=== PATIENT | male | born 1955 | race Caucasian/White ===

== ENCOUNTER → 2025-03-02 | Outpatient (CLI) | payer MEDICARE ==
[~2025-03-02] VITALS: Ht 172.7 cm; Wt 126.6 kg
[~2025-03-02] MED LIST: APIX5TAB PO; ATEN25TA PO; CHOL500045 PO; DOXA4TAB3 PO; FOLI1 PO; LACTATED RINGERS 1000ML 0 ML IV ONE; MAGN100T PO; METH2.5T6 PO; OLME40TA18 PO; OMEP20TA20 PO; PRAV40TA3 PO; UBID200C18 PO; ceFAZolin SODIUM 1 GM VIAL ONE; ceFAZolin SODIUM 2 GM VIAL ONE
[2025-03-02 12:09] LABS: BASOPHILS # (AUTO) 0.03 K/uL (0.00-0.20); BASOPHILS % (AUTO) 0.3 % (0.0-5.0); EOSINOPHILS # (AUTO) 0.11 K/uL (0.00-0.70); EOSINOPHILS % (AUTO) 1.2 % (0.0-8.0); HEMATOCRIT 42.7 % (42-54); IMMATURE GRANULOCYTE ABSOLUTE 0.04 K/uL (0-1); LYMPHOCYTES # (AUTO) 2.3 K/uL (1.0-4.8); LYMPHOCYTES % (AUTO) 25.4 % (21.0-51.0); MEAN CORPUSCULAR HEMOGLOBIN 31.9 pg (27.0-33.0); MEAN CORPUSCULAR HGB CONC 34.4 g/dL (32.0-36.0); MEAN CORPUSCULAR VOLUME 92.6 fL (79-99); MONOCYTES # (AUTO) 0.8 K/uL (0.1-1.0); MONOCYTES % (AUTO) 8.4 % (3.0-13.0); NEUTROPHILS # (AUTO) 5.7 K/uL (1.8-7.7); NEUTROPHILS % (AUTO) 64.3 % (40.0-77.0); PLATELET COUNT (AUTO) 257 K/uL (130-400); RED BLOOD CELL COUNT(AUTO) 4.61 MIL/uL (4.50-6.20); RED CELL DISTRIBUTION WIDTH 13.9 % (11.0-15.5); WHITE BLOOD COUNT (AUTO) 8.9 K/uL (4.8-10.8)
[2025-03-02 12:10] VITALS: BP 179/85; PULSE 64; RESP 18; TEMP 97.5
[2025-03-02 12:23] LABS: INR 1.14 (0.85-1.15); PROTHROMBIN TIME 11.9 SEC (9.6-11.6)
[2025-03-02 12:24] LABS: PARTIAL THROMBOPLASTIN TIME 29.5 SEC (26.3-35.5)
[2025-03-02 12:28] LABS: ALBUMIN 3.6 g/dL (3.5-5.0); CREATININE 0.7 mg/dL (0.5-1.3); POTASSIUM 3.9 mmol/L (3.5-5.1)
--- NOTE | 2025-03-02 12:30 | NUR ---
RE: IS INITIAL IS INITIAL TEACHING COMPLETED BY HAM CUBA DURING PREOP
--- NOTE | 2025-03-08 16:00 | NUR ---
Information received 09- Patient called Ortho office to report a rash, instructed to follow up with PCP. Patient states will not be presenting for elective hip Sx today. ( Melody Mcdonald,HAM)
== END | disposition home or self-care (01) ==
LOC: EDSTATUS 09:00 → DAH 10:55
PROVIDERS: ATTEND Student in an Organized Health Care Education/Training Program
DX: M16.11 Unilateral primary osteoarthritis, right hip (principal); M25.551 Pain in right hip; Z98.890 Other specified postprocedural states; Z79.899 Other long term (current) drug therapy; Z53.9 Procedure and treatment not carried out, unspecified reason; Z79.01 Long term (current) use of anticoagulants
CPT/HCPCS: 36415; 80048; 82040; 84134; 85025; 85610; 85730; 86140; 87641; J0690; J7120

== ENCOUNTER 2025-03-16 10:00 | Inpatient (IN) | payer MEDICARE ==
--- NOTE | 2025-03-15 11:20 | NUR ---
PREOP RITU RT INSTRUCTED ON INCENTIVE SPIROMETRY Addendum: 03/16/25 at 1030 by GEMINI MAY RN RN ORDER WAS NOT PLACED ON PREOP DATE SO ENTERED TODAY
[2025-03-15 11:34] VITALS: BP 189/96; PULSE 58; RESP 18; TEMP 98.3
[2025-03-15 11:37] LABS: ALBUMIN 3.6 g/dL (3.5-5.0); BILIRUBIN,TOTAL 0.8 mg/dL (0.2-1.0); CREATININE 0.8 mg/dL (0.5-1.3); POTASSIUM 3.4 mmol/L (3.5-5.1); TOTAL PROTEIN, SERUM 7.1 g/dL (6.0-8.3)
--- NOTE | 2025-03-15 12:47 | NUR ---
REPORT DR BOYLE INFORMED PT LAST TOOK ELIQUIS ON 03/11/25 0700. OK TO PROCEED
[~2025-03-16] VITALS: Ht 172.7 cm; Wt 126.1 kg
[~2025-03-16 10:00] MED LIST changes: -LACTATED RINGERS 1000ML 0 ML IV ONE; -ceFAZolin SODIUM 1 GM VIAL ONE; -ceFAZolin SODIUM 2 GM VIAL ONE
[2025-03-20] VITALS (22 sets, daily range): BP systolic 127–165; BP diastolic 61–97; PULSE 57–94; RESP 13–20; TEMP 97–98.2; O2SAT 96
[2025-03-20] MEDS: TRANEXAMIC ACID 1000MG/10ML IV ONE
[2025-03-20] MEDS: LACTATED RINGERS 1000ML 1,000 ML IV ONE (10:37)
[2025-03-20] MEDS: ceFAZolin SODIUM 1 GM VIAL ONE (10:37)
[2025-03-20] MEDS: ceFAZolin SODIUM 2 GM VIAL ONE (10:37)
[2025-03-20] MEDS ORDERED: LIDOCAINE PF 100MG/5ML (2%) SYRINGE 5ML ONE (10:57)
[2025-03-20] MEDS ORDERED: proPOFol 10 MG/ML 20ML VIAL IV ONE (10:58)
[2025-03-20] MEDS ORDERED: ondanSETRON 4MG INJ ONE (10:58)
[2025-03-20] MEDS ORDERED: NEOSTIGMINE METHYLSULFATE 1MG/ML IV ONE (10:58)
[2025-03-20] MEDS ORDERED: rocuRONium bROMide 10MG/1ML 5ML VL ONE ×2 (10:58→13:58)
[2025-03-20] MEDS ORDERED: SUCCINYLCHOLINE CHLORIDE 20 MG/ML 10 ML VIAL ONE (10:58)
[2025-03-20] MEDS ORDERED: FENTanyl CITRate PF 50 MCG/1 ML 2ML VIAL ONE ×3 (10:58→16:43)
[2025-03-20] MEDS ORDERED: GLYCOPYRROLATE 0.2 MG/ML 5 ML VIAL ONE (10:58)
[2025-03-20] MEDS ORDERED: dexaMETHasone SOD PHOSPHATE 10MG/ML 1ML VIAL ONE (10:58)
[2025-03-20] MEDS ORDERED: MIDAZOLAM HCL 1 MG/ML 2ML VIAL ONE (11:03)
[2025-03-20] MEDS ORDERED: ketaMINE 50MG/ML SYRINGE 50 MG/ML DISP.SYRIN ONE (11:36)
[2025-03-20] MEDS ORDERED: ALBUMIN (HUMAN) 5% 500 ML IV ONE (11:36)
[2025-03-20] MEDS ORDERED: ROPivacaine 0.5% 5MG/ML 30ML ONE (11:53)
[2025-03-20] MEDS ORDERED: SUGAMMADEX SODIUM 200 MG/2 ML VIAL IV ONE (13:14)
[2025-03-20] MEDS ORDERED: acetaMINOPHEN 100 ML ONE (13:14)
[2025-03-20] MEDS ORDERED: FAMOTIDINE 20MG VIAL IV ONE (13:14)
[2025-03-20] MEDS ORDERED: PoTASSium chl 10% ELIXIR 20MEQ 20 MEQ/15 ML UDCUP PO PRN (13:30)
[2025-03-20] MEDS ORDERED: FERROUS FUMARATE 324 MG TABLET PO PRN (13:30)
[2025-03-20] MEDS ORDERED: traMADol HCL 50 MG TABLET PO PRN (13:30)
[2025-03-20] MEDS ORDERED: HYDROcodone/APAP 5/325 1 TAB TABLET PO PRN ×2 (13:30→14:00)
[2025-03-20] MEDS ORDERED: ondanSETRON 4MG INJ IVP PRN (13:30)
[2025-03-20] MEDS: ceFAZolin SODIUM 3 GM VIAL IVPB ONE (13:38)
[2025-03-20] MEDS: TRANEXAMIC ACID 1000MG/10ML ONE (13:42)
[2025-03-20] MEDS ORDERED: VANCOMYCIN 1G/250ML KIT 250 ML IV ONE (15:57)
[2025-03-20] MEDS: VANCOMYCIN 1G VIAL TP ONE ×2 (15:59→17:00)
--- NOTE | 2025-03-20 18:04 | HMCIMG ---
INTRAOPERATIVE FLUOROSCOPIC GUIDANCE UP TO 1 HOUR. IMPRESSION: Intraoperative fluoroscopic guidance was provided for removal of existing hardware in conversion to right total hip arthroplasty, which was performed by Dr. Wilcox. Total fluoroscopy time was 10.7 seconds, and administered dose, 4.38 mGy. A total of 6 spot images obtained. Please refer to the orthopedic procedure note for further details.
--- NOTE | 2025-03-20 18:34 | DS ---
Discharge Summary Hospital Course Summary: The patient was admitted to the hospital postoperatively on 03/20/2025 after undergoing right conversion hip arthroplasty. They did well with routine postoperative pain control. They worked well with physical therapy. They developed some acute blood loss anemia but remained asymptomatic. The hospital course was otherwise uncomplicated. They were subsequently able to be discharged on postoperative day 2 once discharge arrangements were made with [facility] rehab. A P Supervisor(s): none Procedure(s): Conversion right total hip arthroplasty, 03/20/2025 Assessment/Plan: ASSESSMENT: Status post conversion right total hip arthroplasty Asymptomatic acute blood loss anemia PLAN: See discharge instructions Discharge Instructions: Begin working with therapy at the facility. Remembered do not flex the hip more than 90� and do not cross midline at the knees or ankles for the 1st six weeks. If you are side sleeper place a pillow between the knees and ankles to prevent the legs from crossing. Dressing may be removed 03/22/2025 and left open to air. Showers ok allowing soap and water to run over the wound. Pat dry. Do not submerge wound in tub/pool. Do not apply ointments. Do not apply Betadine. Do not apply peroxide. Ice packs to decrease pain/swelling. Prescriptions have been sent to the pharmacy: *Mt Baldy 5/325mg 1-2 tab every 6 hours as needed for severe pain. (please call for refills) Cyclobenzaprine 5mg 1 tab every 8 hours as needed for muscle spasm pain. Gabapentin 100mg 1 tab every 8 hours (may discontinue if drowsy). Colace 100mg 1 tab orally twice a day as needed for constipation. Aspirin 325mg for 30 days to prevent blood clots. Call for a follow-up appointment in 2-3 weeks at [facility]. Home Medications: Reported Medications Cholecalciferol (Vitamin D3) (Vitamin D3) 125 Mcg (5000 Unit) Tablet, 125 MCG PO DAILY, TAB 03/02/25 Ubidecarenone (Co Q-10) 200 Mg Capsule, 200 MG PO DAILY, CAP 03/02/25 Methotrexate Sodium (Methotrexate) 2.5 Mg Tablet, 10 MG PO QWEEK, TAB Sundays03/02/25 Omeprazole (Omeprazole) 20 Mg Tablet.dr, 20 MG PO DAILY, TAB 03/02/25 Folic Acid (Folvite) 1 Mg Tab, 1 MG PO DAILY, TAB 03/02/25 Olmesartan Medoxomil (Olmesartan Medoxomil) 40 Mg Tablet, 40 MG PO DAILY, TAB 03/02/25 Atenolol (Atenolol) 25 Mg Tablet, 25 MG PO HS, TAB 03/02/25 Pravastatin Sodium (Pravastatin Sodium) 40 Mg Tablet, 40 MG PO HS, TAB 03/02/25 Apixaban (Eliquis) 5 Mg Tablet, 5 MG PO BID, TAB 03/02/25 Doxazosin Mesylate (Doxazosin Mesylate) 4 Mg Tablet, 4 MG PO HS, TAB 03/02/25 Magnesium Glycinate (Mag Glycinate) 100 Mg Tablet, 400 MG PO DAILY, TAB 03/02/25 RUTHIE BOYLE MD March 20, 2025 18:34
[2025-03-20] MEDS: morPHINE 2 MG SYG ONE (18:49)
--- NOTE | 2025-03-20 19:06 | OP ---
Operative Note: DATE OF PROCEDURE: 03/20/25 SURGEON: RUTHIE BOYLE MD SALES REPRESENTATIVE ADDING MACHINES: Stacie Wilson ANESTHESIA: General and fascia iliaca block ANESTHESIOLOGIST/INFECTION CONTROL COORDINATOR: Jacob Segal PREOPERATIVE DIAGNOSIS: Right hip osteoarthritis POSTOPERATIVE DIAGNOSIS: Right hip osteoarthritis PROCEDURE: Complex conversion right total hip arthroplasty ESTIMATED BLOOD LOSS: 200 cc INDICATIONS: 69-year-old male with a history of bilateral hips SCFE with surgical treatment when he was 16. He went onto develop bilateral hip osteoarthritis. He had left total hip arthroplasty performed elsewhere that required a few revisions. He continued on with right hip osteoarthritis and was failing conservative management. This was complicated by the fact he had a retained DHS lateral plate in addition to some proximal femoral deformity. After discussion of the risks, benefits, and alternatives, the patient voluntarily agreed to undergo the aforementioned procedure. IMPLANTS: Riley [employer] Nephew 54 mm R3 acetabular component with 6.5 mm screws x2 and central hole cover, 0 degree XLPE polyethylene liner, size 6 standard offset anthology stem with a 36 mm Oxinium +0 head DESCRIPTION OF PROCEDURE: Patient was properly identified in the preoperative holding area. Surgical site marking was verified and surgery consent reviewed. The patient was then taken to the operating room and placed in supine position on the OR table. After induction of general anesthesia, preoperative antibiotics were given. The patient was then transitioned in the lateral decubitus position with the right side up. All bony prominences were well-padded. Right lower extremity was then prepped and draped in the usual sterile fashion. Surgical time out was done verifying correct surgery, side, site, and location to be performed. We began the procedure by opening the previous lateral scar along proximal thigh excising the widened scar tissue. We did not follow the anterior limb of the scar. Here we came down sharply through the subcutaneous scar tissue to identify the IT band. Hemostasis was performed using Bovie electrocautery. IT band was incised in line with our skin incision. This was elevated anteriorly and posteriorly with a Charnley retractor in place. We then identified the vastus lateralis and swept this anteriorly as we work to identify the plate along the bone. We then used osteotomes to remove the bony overgrowth over the top of the plate and resected some of this material using a rongeur. We then began to address the screws from the shaft of the plate and were able to get the proximal three of the screws to, without significant difficulty. The most distal screw we attempted to remove with the screwdrivers both Oliveira and flat head and were unable to get this to move. The screw head stripped in this process and we attempted to remove it with the easy-outs that were in the [facility] set without success. We then elected to cut off the head of the screw using the metal cutting kaley wheel. Once we had removed the head of the screw, we then elected to elevate the plate off of the bone. We did this sequentially placing osteotomes under the shaft of the plate progressing further away from the fixed angle portion. We are then able to remove the plate from the bone without further difficulty. We attempted to grasp of the remaining portion of the screw shaft that was visible after removing the plate using vice rating clerk. We were unable to rotate this remaining portion of the screw. We then had to use a trephined over the remaining screw shaft buried in the bone. When the trephined did not completely remove the screw it was removed from the bone in the screw was noted to have fractured further in the shaft. We used a 2nd trephined to remove the remainder of the screw. We then thoroughly irrigated out this portion of the wound to remove metal shavings prior to proceeding with the total hip portion of the procedure. We then extended the incision proximally over the greater trochanter approximately 10 cm using a 10 blade. Here we came sharply through skin down to the fascia. Hemostasis was then achieved using Bovie electrocautery. We then incised fascia in line with the skin incision and finger split the tensor muscle proximally. We then placed our Charnley retractor. At this point we identified the vastus ridge and began elevating the full-thickness soft tissue flap off of the vastus ridge, splitting the vastus lateralis and gluteus muscles as necessary. We then proceeded to externally rotate the femur while making this flap. We noted abnormal anatomy of the proximal femur secondary to prior surgical intervention at this time. We took care with performing this part of the dissection due to the altered anatomy. We resected part of the anterior capsule. The femoral head and neck was then delivered into view. We then dislocated the hip and performed our femoral neck osteotomy approximately half a fingerbreadth proximal to the lesser trochanter. We then placed our retractors around the superior and anterior portion of the acetabulum and began to remove the labrum circumferentially. We then began reaming the acetabulum where we reamed up to a size 53 ensuring appropriate anteversion and abduction. We then proceeded to trial with the size 54 acetabular component and this appeared to sit well. We opened our size 54 acetabular component and after irrigating out the wound malleted this into place. It appeared to have good press-fit however we elected to place two of the 6.5 mm screws as well. We drilled and filled the screws in standard fashion in the posterior superior portion of the cup. We then placed the manhole cover on the center of the cup. The wound was thoroughly irrigated out further and we placed the acetabular liner and impacted this in place in standard fashion. We then proceeded to reposition our retractors to elevate the proximal femur out of the wound. We then used the box chisel and canal finder to began preparing the femoral side and sequentially broached up to the aforementioned size stem. Once we felt we had good fit, fill, and control of the femur with the stem in place we then used our trial head component and reduce the hip. Upon reduction, we had appropriate soft tissue tensioning, limb length and stable range of motion. We therefore dislocated the hip once more removed our trial components thoroughly irrigated the out the wound and placed our final components in st andard fashion. The hip was then reduced with the final components in place. It was found to be stable through range of motion with appropriate soft tissue tensioning and appropriate limb length. We then dumped 1 g of vancomycin powder throughout the wound from the hip extended into the proximal thigh. At this point we placed a bump under the knee and the foot on the Macias stand with a stack of towels to allow for internal rotation. We repaired the abductors back to the greater trochanter using #5 Ethibond. We repaired the split in the gluteus medius and minimus muscles using the 5. Ethibond in a running fashion. We then repaired the fascia of the vastus lateralis using #1 Vicryl in a interrupted [id number]. We removed our Charnley retractor and began to repair the IT band using #1 Vicryl in interrupted [id number] fashion. At this point we began to close her subcutaneous tissue using 2-0 Vicryl. Running 3-0 Monocryl in subcuticular fashion with Dermabond placed over this for the skin. Island barrier dressing was then applied. Patient was returned to supine position with abduction pillow placed, awakened from anest hesia, and taken to the recovery room in stable condition. Due to the increased complexity from the hardware in place and abnormal anatomy from prior surgical intervention this procedure took over twice as long as it normally does. RUTHIE BOYLE MD March 20, 2025 19:06
--- NOTE | 2025-03-20 19:38 | HMCIMG ---
Exam Type: HIP BILAT 2VW History: S/P HIP SURGERY; COMPARING RT vs LT Comparison: none Findings: There is status post right hip replacement with adequate visualization and alignment of bony and hardware elements. No complications are seen. Single view AP of the left hip demonstrate status post hip replacement as well, but with a focus of cystic degeneration involving the greater trochanter which may represent implant related bone lysis. Bone density is preserved. No acute fractures or dislocations are seen. No blastic or lytic lesions or bones are identified. The soft tissues are unremarkable. 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 No acute fractures or other abnormalities otherwise.
[2025-03-20] MEDS: ketOROlac 15MG/ML VIAL (15MG/ML) IV SCH (20:16)
[2025-03-20] MEDS: atorVAStatin 10 MG TABLET PO SCH (20:16)
[2025-03-20] MEDS: doCUSate SODIUM 100 MG CAP PO SCH (20:16)
[2025-03-20] MEDS: ATENOLOL 25 MG TABLET PO SCH (20:16)
[2025-03-20] MEDS: DOXAZOSIN MESYLATE 2 MG TABLET PO SCH (20:16)
[2025-03-20] MEDS: ceFAZolin SODIUM 2 GM VIAL IVP SCH (20:17)
[2025-03-20] MEDS: GABApentin 100 MG CAPSULE PO SCH (20:17)
[2025-03-20] MEDS: CYCLOBENZAPRINE HCL 10 MG TABLET PO PRN (23:09)
[2025-03-20] MEDS: HYDROcodone/APAP 5/325 1 TAB TABLET PO PRN (23:09)
[2025-03-21] VITALS (9 sets, daily range): BP systolic 101–154; BP diastolic 47–79; PULSE 70–79; RESP 18–20; TEMP 97.7–98.7; O2SAT 96
[2025-03-21] MEDS: 0.9%NACL 1000ML 1,000 ML IV SCH (00:22)
[2025-03-21 05:18] LABS: HEMATOCRIT 35.1 % (42-54); MEAN CORPUSCULAR HEMOGLOBIN 32.1 pg (27.0-33.0); MEAN CORPUSCULAR VOLUME 91.6 fL (79-99); RED BLOOD CELL COUNT(AUTO) 3.83 MIL/uL (4.50-6.20); RED CELL DISTRIBUTION WIDTH 13.8 % (11.0-15.5); WHITE BLOOD COUNT (AUTO) 13.2 K/uL (4.8-10.8)
[2025-03-21 05:29] LABS: CREATININE 0.8 mg/dL (0.5-1.3)
[2025-03-21 05:43] LABS: POTASSIUM 2.9 mmol/L (3.5-5.1)
[2025-03-21] MEDS: PoTASSium chloRIDE 20MEQ/100ML 100 ML IV PRN (05:49)
[2025-03-21] MEDS: PoTASSium chloRIDE 20MEQ ER 20 MEQ ERTAB PO PRN (05:49)
[2025-03-21] MEDS: CALCIUM CARB 500MG PO PRN (05:49)
--- NOTE | 2025-03-21 08:07 | PN ---
Ortho postop day one. This morning patient is awake alert and oriented. He is out of bed seated in a chair resting comfortably reporting mild to moderate pain. Vital signs have remained stable. Afebrile. Voiding on his own without difficulty. Laboratory results reviewed. Noted to have a drop in hemoglobin and hematocrit as expected after total hip arthroplasty. Currently is asymptomatic. The patient also has drop in potassium as well as calcium and is currently being covered with protocol. Operative findings discussed with the patient. He is yet to pass gas. Dressing is intact. Distal neurovascular exam intact. He currently has SCD sleeves on but not connected. Reinforced and incentive spirometry and returned demonstration adequate. Did not have the opportunity to ambulate yesterday with physical therapy and is pending therapy this morning. Anticipated discharge goal is [facility] rehab. Assessment: Status post complex right total hip arthroplasty conversion. Hypokalemia Hypocalcemia Asymptomatic Acute postoperative blood loss anemia. Plan: Continue with Dr. Wilcox's total hip arthroplasty protocol and discharge planning. Hypokalemia currently addressed and on treatment by protocol Hypocalcemia currently addressed and on treatment by protocol Asymptomatic acute postoperative blood loss anemia addressed with the protocol as necessary Vitals/Labs Vital Signs Date Time Temp Pulse Resp B/P (MAP) Pulse Ox O2 Delivery O2 Flow Rate FiO2 03/21/25 03:15 98.1 78 20 148/69 99 Nasal Cannula 3.0 03/20/25 19:30 32 Laboratory Tests 03/21/25 04:38 Medications Current Medications Cefazolin Sodium 1 gm STK-MED ONCE .ROUTE; Start 03/20/25 at 09:11; Stop 03/20/25 at 09:11; Status DC Cefazolin Sodium 2 gm STK-MED ONCE .ROUTE; Start 03/20/25 at 09:11; Stop 03/20/25 at 09:11; Status DC Lactated Ringer's 1,000 ml @ As Directed STK-MED ONCE IV Last administered on 03/20/25at 10:37; Start 03/20/25 at 09:11; Stop 03/20/25 at 09:11; Status DC Lidocaine HCl 100 mg STK-MED ONCE .ROUTE; Start 03/20/25 at 10:57; Stop 03/20/25 at 10:58; Status DC Succinylcholine Chloride 200 mg STK-MED ONCE .ROUTE; Start 03/20/25 at 10:58; Stop 03/20/25 at 10:58; Status DC Dexamethasone Sodium Phosphate 10 mg STK-MED ONCE .ROUTE; Start 03/20/25 at 10:58; Stop 03/20/25 at 10:58; Status DC Glycopyrrolate 1 mg STK-MED ONCE .ROUTE; Start 03/20/25 at 10:58; Stop 03/20/25 at 10:58; Status DC Propofol 200 mg STK-MED ONCE IV; Start 03/20/25 at 10:58; Stop 03/20/25 at 10:58; Status DC Neostigmine Methylsulfate 10 mg STK-MED ONCE IV; Start 03/20/25 at 10:58; Stop 03/20/25 at 10:58; Status DC Ondansetron HCl 4 mg STK-MED ONCE .ROUTE; Start 03/20/25 at 10:58; Stop 03/20/25 at 10:58; Status DC Rocuronium Chase 50 mg STK-MED ONCE .ROUTE; Start 03/20/25 at 10:58; Stop 03/20/25 at 10:59; Status DC Fentanyl Citrate 100 mcg STK-MED ONCE .ROUTE; Start 03/20/25 at 10:58; Stop 03/20/25 at 10:59; Status DC Midazolam HCl 2 mg STK-MED ONCE .ROUTE; Start 03/20/25 at 11:03; Stop 03/20/25 at 11:03; Status DC Ketamine HCl 50 mg STK-MED ONCE .ROUTE; Start 03/20/25 at 11:36; Stop 03/20/25 at 11:36; Status DC Albumin Human 500 ml @ As Directed STK-MED ONCE IV; Start 03/20/25 at 11:36; Stop 03/20/25 at 11:37; Status DC Ropivacaine 150 mg STK-MED ONCE .ROUTE; Start 03/20/25 at 11:53; Stop 03/20/25 at 11:53; Status DC Acetaminophen 100 ml @ As Directed STK-MED ONCE .ROUTE; Start 03/20/25 at 13:14; Stop 03/20/25 at 13:14; Status DC Famotidine 20 mg STK-MED ONCE IV; Start 03/20/25 at 13:14; Stop 03/20/25 at 13:15; Status DC Sodium Chloride 1,000 ml @ 100 mls/hr Q10H IV Last administered on 03/21/25at 00:22; Start 03/20/25 at 13:30; Stop 03/21/25 at 13:29 Polyethylene Glycol 17 gm DAILY PO; Start 03/21/25 at 09:00; Stop 04/20/25 at 08:59 Bisacodyl 10 mg DAILY PRN RC; Start 03/23/25 at 13:30; Stop 04/22/25 at 13:29 Ketorolac Tromethamine 15 mg Q6H PRN IV; Start 03/21/25 at 13:30; Stop 03/26/25 at 13:29 Ferrous Fumarate 324 mg DAILY PRN PO; Start 03/20/25 at 13:30; Stop 04/19/25 at 13:29 Calcium Carbonate 500 mg Q12H PRN PO Last administered on 03/21/25at 05:49; Start 03/20/25 at 13:30; Stop 04/19/25 at 13:29 Ondansetron HCl 4 mg Q6H PRN IVP; Start 03/20/25 at 13:30; Stop 04/19/25 at 13:29 Cefazolin Sodium 2 gm Q8H IVP Last administered on 03/21/25at 02:24; Start 03/20/25 at 18:30; Stop 03/21/25 at 02:31; Status DC Gabapentin 100 mg TID PO Last administered on 03/20/25at 20:17; Start 03/20/25 at 14:00; Stop 04/19/25 at 13:59 Cyclobenzaprine HCl 5 mg Q8H PRN PO Last administered on 03/20/25at 23:09; Start 03/20/25 at 13:30; Stop 04/19/25 at 13:29 Docusate Sodium 100 mg BID PO Last administered on 03/20/25at 20:16; Start 03/20/25 at 21:00; Stop 04/19/25 at 20:59 Ketorolac Tromethamine 15 mg Q8H IV Last administered on 03/21/25at 05:14; Start 03/20/25 at 13:30; Stop 03/21/25 at 05:32; Status DC Aspirin 325 mg DAILY PO; Start 03/21/25 at 09:00; Stop 04/20/25 at 08:59 Potassium Chloride 100 ml @ 100 mls/hr AD PRN IV Last administered on 03/21/25at 05:49; Start 03/20/25 at 13:30; Stop 04/19/25 at 13:29 Potassium Chloride 20 meq AD PRN PO; Start 03/20/25 at 13:30; Stop 04/19/25 at 13:29 Potassium Chloride 20 meq AD PRN PO Last administered on 03/21/25at 05:49; Start 03/20/25 at 13:30; Stop 04/19/25 at 13:29 Tramadol HCl 50 mg Q6H PRN PO; Start 03/20/25 at 13:30; Stop 03/25/25 at 13:29 Acetaminophen/ Hydrocodone Bitart Q4H PRN PO; Start 03/20/25 at 13:30; Stop 03/20/25 at 13:54; Status DC Atenolol 25 mg HS PO Last administered on 03/20/25at 20:16; Start 03/20/25 at 21:00; Stop 04/19/25 at 20:59 Folic Acid 1 mg DAILY PO; Start 03/21/25 at 09:00; Stop 04/20/25 at 08:59 Methotrexate 10 mg QWEEK PO; Start 03/27/25 at 09:00; Stop 04/26/25 at 08:59 Home Med (Cholecalciferol (Vitamin D3) (Vitamin ... DAILY PO; Start 03/21/25 at 09:00; Stop 04/20/25 at 08:59 Doxazosin Mesylate 4 mg HS PO Last administered on 03/20/25at 20:16; Start 03/20/25 at 21:00; Stop 04/19/25 at 20:59 Home Med (Magnesium Glycinate (... DAILY PO; Start 03/21/25 at 09:00; Stop 04/20/25 at 08:59 Losartan Potassium 100 mg DAILY PO; Start 03/21/25 at 09:00; Stop 04/20/25 at 08:59 Pantoprazole Sodium 40 mg DAILY PO; Start 03/21/25 at 09:00; Stop 04/20/25 at 08:59 Atorvastatin Calcium 10 mg HS PO Last administered on 03/20/25at 20:16; Start 03/20/25 at 21:00; Stop 04/19/25 at 20:59 Home Med (Ubidecarenone (Co Q-10) 200 MG) DAILY PO; Start 03/21/25 at 09:00; Stop 04/20/25 at 08:59 Tranexamic Acid 1,000 mg STK-MED ONCE .ROUTE Last administered on 03/20/25at 13:42; Start 03/20/25 at 13:49; Stop 03/20/25 at 13:52; Status DC Acetaminophen/ Hydrocodone Bitart 1 tab Q4H PRN PO; Start 03/20/25 at 14:00; Stop 03/25/25 at 13:59 Acetaminophen/ Hydrocodone Bitart 2 tab Q4H PRN PO Last administered on 03/20/25at 23:09; Start 03/20/25 at 14:00; Stop 03/25/25 at 13:59 Rocuronium Chase 50 mg STK-MED ONCE .ROUTE; Start 03/20/25 at 13:58; Stop 03/20/25 at 13:58; Status DC Fentanyl Citrate 100 mcg STK-MED ONCE .ROUTE; Start 03/20/25 at 14:12; Stop 03/20/25 at 14:13; Status DC Tranexamic Acid 1,000 mg STK-MED ONCE IV; Start 03/20/25 at 00:00; Stop 03/20/25 at 00:01; Status Cancel Vancomycin HCl 250 ml @ As Directed STK-MED ONCE IV; Start 03/20/25 at 15:57; Stop 03/20/25 at 15:58; Status DC Vancomycin HCl 1 gm STK-MED ONCE TP; Start 03/20/25 at 15:59; Stop 03/20/25 at 16:00; Status Cancel Fentanyl Citrate 100 mcg STK-MED ONCE .ROUTE; Start 03/20/25 at 16:43; Stop 03/20/25 at 16:43; Status DC Vancomycin HCl 1 gm STK-MED ONCE TP Last administered on 03/20/25at 17:00; Start 03/20/25 at 17:00; Stop 03/20/25 at 17:00; Status DC Cefazolin Sodium 3 gm STK-MED ONCE IVPB Last administered on 03/20/25at 13:38; Start 03/20/25 at 13:38; Stop 03/20/25 at 17:32; Status DC Morphine Sulfate 2 mg STK-MED ONCE .ROUTE Last administered on 03/20/25at 18:49; Start 03/20/25 at 18:47; Stop 03/20/25 at 18:48; Status DC AUSTIN VILLANUEVA NP March 21, 2025 08:07
[2025-03-21] MEDS: ASPIRIN 325MG EC TAB PO SCH (08:30)
[2025-03-21] MEDS: PANTOPrazole 40 MG TAB DR PO SCH (08:30)
[2025-03-21] MEDS: polyETHYLene GLYCol 3350 17 GM POWD.PACK PO SCH (08:30)
[2025-03-21] MEDS: FOLic ACID 1 MG TABLET PO SCH (08:31)
[2025-03-21] MEDS: (Cholecalciferol (Vitamin D3) (Vitamin D3) 125 MCG) PO SCH (08:37)
[2025-03-21] MEDS: (Ubidecarenone (Co Q-10) 200 MG) PO SCH (08:37)
[2025-03-21] MEDS: MAGNESIUM GLYCINATE 400 MG PO SCH (08:37)
[2025-03-21] MEDS: LoSARTan 100 MG TABLET PO SCH (09:00)
[2025-03-21] MEDS ORDERED: ketOROlac 15MG/ML VIAL (15MG/ML) IV PRN (13:30)
--- NOTE | 2025-03-21 18:16 | NUR ---
DC PLAN VISITED WITH PATIENT. PATIENT LIVES WITH SPOUSE. INDEPENDENT ABLE TO PERFORM ADL'S. PATIENT HAS NO SERVICES. WALKER AND WHEEL CHAIR AVAILABLE. WANTS [facility]. GEORGINA SIGNED PACKET SENT. Addendum: 03/21/25 at 1820 by PEREZ MERRITT RN CM Amended: Links added.
--- NOTE | 2025-03-21 18:21 | NUR ---
DC PLAN PACKET MADE AND SENT. LET PT KNOW OF PENDING PT NOTE. ALSO LET REP KNOW OF PENDING PT NOTE. DELAY NO BED AVAILABLE TODAY. SHOULD HAVE ONE TOMORROW. ALSO PATIENT WAS TOLD THERE WAS TRANSPORT AVAILABLE HE TOOK IT TO MEAN THE FACILITY WOULD TRANSFER THE FACILITY WAS MEANING MORE EMS RELATED. EXPLAINED THAT CM CAN NOT GUARANTEE THAT EMS WILL BE COVERED. ONE NOT CLOSEST FACILITY TWO PATIENT ALREADY SITTING UP IN CHAIR AND WALKING. GAVE OTHER OPTIONS INCLUDING [facility], ASKING FOR FAMILY OR FRIEND TO [facility] SINCE PATIENT FEELS THEIR CAR IS TO SMALL. SAID WOULD STILL LIKE TO TALK TO [facility] OR [facility] HE FELT [facility] WAS NOT RESPECTFUL. CM LET MAYURI FROM [facility] KNOW OF PATIENT WANTING TO TALK TO REYES OR JASMYNE. SAID WOULD HAVE JASMYNE CALL PATIENT. Addendum: 03/21/25 at 1828 by PEREZ MERRITT RN Amended: Links added.
[2025-03-22 03:13] VITALS: BP 97/52; PULSE 77; RESP 20; TEMP 98.1
[2025-03-22 08:00] VITALS: BP 106/55; PULSE 89; RESP 21; TEMP 99.4
--- NOTE | 2025-03-22 09:12 | NUR ---
KRZYSZTOF PLAN SAHIL CALLED SPOKE TO MARY TO CHECK ON BED STATUS. SAID GOING TO MEETING THIS MORNING WILL KNOW. CM PENDING UPDATE ON BED ETA. Addendum: 03/22/25 at 0913 by PEREZ MERRITT RN CM Amended: Links added.
[2025-03-22 10:06] LABS: MEAN CORPUSCULAR HEMOGLOBIN 33.1 pg (27.0-33.0); MEAN CORPUSCULAR HGB CONC 34.6 g/dL (32.0-36.0); MEAN CORPUSCULAR VOLUME 95.6 fL (79-99); RED BLOOD CELL COUNT(AUTO) 3.66 MIL/uL (4.50-6.20); RED CELL DISTRIBUTION WIDTH 14.5 % (11.0-15.5); WHITE BLOOD COUNT (AUTO) 15.5 K/uL (4.8-10.8)
[2025-03-22 10:14] LABS: POTASSIUM 3.5 mmol/L (3.5-5.1)
[2025-03-22 12:00] VITALS: BP 111/54; PULSE 83; RESP 20; TEMP 98.3
--- NOTE | 2025-03-22 13:06 | NUR ---
DC PLAN PATIENT ACCEPTED TO [facility] [phone]. TRANSPORTATION FINAL AGREEMENT WITH PATIENT [facility] IS GOING TO PRODUCT DIRECTOR PATIENT. JUST RECEIVED A CALL FROM [facility] THAT CAN NOT PRODUCT DIRECTOR AFTER 230PM. LET DR. BOYLE KNOW AND GROUP CHAT. LET NURSE KNOW. MOT STARTED NEED SIGNATURES FLAGGED IN CHART. Addendum: 03/22/25 at 1309 by PEREZ MERRITT RN CM Amended: Links added.
--- NOTE | 2025-03-22 13:16 | NUR ---
DC PLAN ACCEPTED [facility] SPOKE TO NURSE INFORMED OF CUT OFF AT 230PM. ALSO MOT NEEDING SIGNATURES FLAGGED IN CHART. GAVE NUMBER TO CALL REPORT [phone]. Addendum: 03/22/25 at 1318 by PEREZ MERRITT RN CM Amended: Links added.
[2025-03-23] MEDS ORDERED: BisaCODYL 10 MG SUPP.RECT RC PRN (13:30)
[2025-03-27] MEDS ORDERED: METHOTREXATE SODIUM 2.5 MG PO SCH (09:00)
== END 2025-03-22 15:30 | DRG 467 ==
LOC: DAHIP 03-20 08:07 → 4DH 03-20 19:35
PROVIDERS: ADMIT Student in an Organized Health Care Education/Training Program; ATTEND Student in an Organized Health Care Education/Training Program
PROC: 3E0T3BZ Introduction of Anesthetic Agent into Peripheral Nerves and Plexi, Percutaneous Approach (ICD-10-PCS; 2025-03-20)
PROC: 0SP90JZ Removal of Synthetic Substitute from Right Hip Joint, Open Approach (ICD-10-PCS; principal; 2025-03-20 14:15)
PROC: 0SR906A Replacement of Right Hip Joint with Oxidized Zirconium on Polyethylene Synthetic Substitute, Uncemented, Open Approach (ICD-10-PCS; 2025-03-20 14:15)
DX: M16.0 Bilateral primary osteoarthritis of hip (principal); D62 Acute posthemorrhagic anemia; E83.51 Hypocalcemia; E87.6 Hypokalemia; Z96.642 Presence of left artificial hip joint
CPT/HCPCS: 36415; 73503; 73521; 80048; 80053; 82948; 85027; 86140; C1776; G0378; J0330; J0690; J1100; J1885; J2003; J2250; J2270; J2405; J2704; J2710; J2795; J3010; J3370; J3480; J3490; J7030; J7120; P9045; A4213; A4215; A4216; A4221; A4222; A4223; A4649; A4663; A4930; A6254; A6255